=== PATIENT | female | born 1985 | race Two or more races ===

== ENCOUNTER 2025-01-28 15:56 | Inpatient (IN) | payer OTHER ==
[~2025-01-28] VITALS: Ht 160 cm; Wt 80.0 kg
--- NOTE | 2025-01-28 17:21 | ED.PDOC ---
History of Present Illness HPI Comments 39F presents to the ER w/ no prior MHx associated to the c/c of ABD pain. Pt reports on having sharp RLQ pain which radiates diffusely on the ABD and to the back which it starting yesterday. Pt notes on having pain during urination. Denies chills, fever, N/V/D, SOB, CP. Denies any other associated symptom's, modifiers, or recent injuries or sick contact at this time. Chief Complaint: Abdominal Pain Time Seen by MD: 17:20 Reviewed Notes: Nurses Notes, Medications, Allergies Allergies: Coded Allergies: NO KNOWN ALLERGIES (Unverified , 01/28/25) Information Source: Patient Mode of Arrival: Wheelchair Severity: Moderate Timing: Hours Duration: Since onset, Hours Prehospital treatment: None Past Medical History PAST MEDICAL HISTORY: Denies Surgical History: Denies all surgeries DIRECTOR OF OPERATIONS HOME HEALTH History: No Pertinent DIRECTOR OF OPERATIONS HOME HEALTH History Family History Family History: Reviewed,noncontributory to illness, Unknown Social History Smoker: Non-Smoker Alcohol: Occasionally Drugs: Denies Drug Use Lives In: Home Constitutional: denies: chills, diaphoresis, fatigue, fever, malaise, sweats, weakness, others EENTM: denies: blurred vision, double vision, ear bleeding, ear discharge, ear drainage, ear pain, ear ringing, eye pain, eye redness, hearing loss, mouth pain, mouth swelling, nasal discharge, nose bleeding, nose congestion, nose pain, photophobia, tearing, throat pain, throat swelling, voice changes, others Respiratory: denies: cough, hemoptysis, orthopnea, SOB at rest, shortness of breath, SOB with excertion, stridor, wheezing, others Cardiovascular: denies: chest pain, dizzy spells, diaphoresis, Dyspnea on exertion, edema, irregular heart beat, left arm pain, lightheadedness, palpitations, PND, syncope, others Gastrointestinal: reports: abdominal pain; denies: abdomen distended, blood s treaked bowels, constipated, diarrhea, dysphagia, difficulty swallowing, hematemesis, melena, nausea, poor appetite, poor fluid intake, rectal bleeding, rectal pain, vomiting, others Genitourinary: reports: others (pain during urination); denies: abnormal vagina bleeding, burning, dyspareunia, dysuria, flank pain, frequency, hematuria, inc ontinence, pain, , vagina discharge, urgency Neurological: denies: dizziness, fainting, headache, left sided numbness, left sided weakness, numbness, paresthesia, pre-existing deficit, right sided numbness, right sided weakness, seizure, speech problems, tingling, tremors, weakness, others Musculoskeletal: reports: back pain; denies: gout, joint pain, joint swelling, muscle pain, muscle stiffness, neck pain, others Integumetry: denies: bruises, change in color, change in hair/nails, dryness, laceration, lesions, lumps, rash, wounds, others Allergic/Immunocompromised: denies: Difficulty Healing, Frequent Infections, Hives, Itching, others Hematologic/Lymphatic: denies: anemia, blood clots, easy bleeding, easy bruising, swollen glands, others Endocrine: denies: excessive hunger, excessive sweating, excessive thirst, excessive urination, flushing, intolerance to cold, intolerance to heat, unexplained weight gain, unexplained weight loss, others Psychiatric: denies: anxiety, bipolar disorder, depression, hopeless, panic disorder, schizophrenia, sleepless, suicidal, others All Other Systems: Reviewed and Negative Physical Exam General Appearance: Moderate Distress HEENT: Normal ENT Inspection, Pharynx Normal, TMs Normal Neck: Full Range of Motion, Non-Tender, Normal, Normal Inspection Respiratory: Chest Non-Tender, Lungs Clear, No Accessory Muscle Use, No Respiratory Distress, Normal Breath Sounds Cardiovascular: No Edema, No JVD, No Murmur, No Gallop, Normal Peripheral Pulses, Regular Rate/Rhythm Breast Exam: Deferred Gastrointestinal: Diffuse, No Organomegaly, No Pulsatile Mass, Normal Bowel Sounds, Soft, Tenderness Genitalia: Deferred Pelvic: Deferred Rectal: Deferred Extremities: No calf tenderness, Normal capillary refill, No pedal edema Musculoskeletal : Apperance: Normal Neurologic: Alert, assessment technician II-XII nml as Tested, No Motor Deficits, Normal Affect, Normal Mood, No Sensory Deficits Cerebellar Function: Normal Reflexes: Normal Skin: Dry, Normal Color, Warm Lymphatic: No Adenopathy Was a procedure done? Was a procedure done?: No Differential Dx Considerations may include: Cholecystitis, cholelithiasis, appendicitis, generalized weakness, gastritis X-Ray, Labs, Meds, VS Vital Signs Date Time Temp Pulse Resp B/P (MAP) Pulse Ox O2 Delivery O2 Flow Rate FiO2 01/28/25 15:58 98.0 90 18 139/85 95 98.0 Lab Test 01/28/25 18:15 Range/Units White Blood Count 16.3 H 4.4-10.8 10^3/uL Red Blood Count 4.14 4.0-5.20 10^6/uL Hemoglobin 12.9 12.2-16.2 g/dL Hematocrit 38.3 36.0-46.0 % Mean Corpuscular Volume 92.5 80.0-100.0 fL Mean Corpuscular Hemoglobin 31.3 28.0-32.0 pg Mean Corpuscular Hemoglobin Concent 33.8 32.0-36.0 g/dL Red Cell Distribution Width 13.3 11.8-14.3 % Platelet Count 212 140-450 10^3/uL Mean Platelet Volume 8.2 6.9-10.8 fL Neutrophils (%) (Auto) 93.6 H 37.0-80.0 % Lymphocytes (%) (Auto) 2.9 L 10.0-50.0 % Monocytes (%) (Auto) 2.3 0.0-12.0 % Eosinophils (%) (Auto) 0.1 0.0-7.0 % Basophils (%) (Auto) 1.1 0.0-2.0 % Neutrophils # (Auto) 15.3 H 1.6-8.6 10 ^3/uL Lymphocytes # (Auto) 0.5 0.4-5.4 10 ^3/uL Monocytes # (Auto) 0.4 0-1.3 10 ^3/uL Eosinophils # (Auto) 0 0-0.8 10 ^3/uL Basophils # (Auto) 0.2 0-0.2 10 ^3/uL Nucleated Red Blood Cells 0.0 % Sodium Level 134 L 136-145 mmol/L Potassium Level 3.6 3.5-5.1 mmol/L Chloride Level 102 98-107 mmol/L Carbon Dioxide Level 23 20-31 mmol/L Anion Gap 9 5-15 Blood Urea Nitrogen 7 L 9-23 mg/dL Creatinine 0.84 0.550-1.02 mg/dL Glomerular Filtration Rate Calc 91 >90 mL/min BUN/Creatinine Ratio 8.3 L 10.0-20.0 Serum Glucose 188 H 74-106 mg/dL Calcium Level 9.1 8.7-10.4 mg/dL Total Bilirubin 1.3 H 0.2-1.0 mg/dL Aspartate Amino Transferase (AST) 13 13-40 U/L Alanine Aminotransferase (ALT) 11 7-40 U/L Alkaline Phosphatase 77 46-116 U/L Total Protein 7.6 5.7-8.2 g/dL Albumin 4.4 3.2-4.8 g/dL Lipase 22 12-53 U/L CAT scan of the abdomen and pelvis shows: IMPRESSION: 1. Mild stool burden. No hydronephrosis or nephroureterolithiasis. 2. Indeterminate 3.5 cm areas soft tissue thickening along the left posterior lower hemithorax. Imaging finding may be seen in the setting of metastatic disease to the intercostal space. No adjacent aggressive osseous features. Consider dedicated CT of the chest with contrast. The patient's CBC shows an elevated white blood cell count of 16.3 The chemistry panel is also within normal limits except for a bilirubin of 1.3 The patient will be admitted at this time. The patient understands and agrees with the management. The urine test is pending The patient was given morphine and Zofran for the pain and nausea The patient is being given Protonix 40 mg IV push Images Reviewed?: Images reviewed and evaluated by me Time of 1ST Reevaluation: 17:50 Reevaluation 1ST: Unchanged Patient Education/Counseling: Diagnosis, Treatment, Prognosis Family Education/Counseling: No Family Present SEPSIS Sepsis Screen Date sepsis recognized/suspect: Jan 28, 2025 Time Sepsis recognized/suspect: 1600 Recent Procedure: No On Antibiotic Therapy: No Respiratory Rate >20: No Heart Rate >90: No Temp<36 C (96.8 F) or >38.3 C: No SBP <90 or MAP <65 mmHG: No New Acute Mental Status Change: No Is the patient on CPAP, BIPAP,: No Physician Orders Urinalysis (01/28/25 17:18) Ct Ab Pel Wo Con-No Oral Or Iv (01/28/25 17:18) Heplock Iv (01/28/25 17:18) Automotive Glass Installer (01/28/25 17:18) Blood Pressure (01/28/25 17:18) Pulse Oximetry (01/28/25 17:18) Vital Signs Date Time Temp Pulse Resp B/P (MAP) Pulse Ox O2 Delivery O2 Flow Rate FiO2 01/28/25 15:58 98.0 90 18 139/85 95 98.0 Laboratory Tests Test 01/28/25 18:15 White Blood Count 16.3 10^3/uL (4.4-10.8) H Departure 1 Departure Time of Disposition: 20:37 Impression: Primary Impression: Intractable abdominal pain Disposition: ADMITTED INPATIENT Admit to: Med Surg Condition: Other Critical Care Note Critical Care Time?: No Stability Stability form required: Yes Unstable for transfer: ED Physician Assesment (Clinical assesment) Heart Score Heart Score: Heart Score Response (Comments) Value History N/A 0 EKG N/A 0 Age N/A 0 Risk Factors N/A 0 Troponin N/A 0 Total 0 I personally scribed for DENTON JIMENEZ MD ([email or web address]) on 01/28/25 at 17:21. Electronically submitted by Nain Zabala ([email or web address]). DENTON JIMENEZ MD Jan 28, 2025 17:21
[2025-01-28 18:37] LABS: Hematocrit 38.3 % (36.0-46.0); Hemoglobin 12.9 g/dL (12.2-16.2); Mean Corpuscular Hemoglobin 31.3 pg (28.0-32.0); Mean Corpuscular Volume 92.5 fL (80.0-100.0); Nucleated Red Blood Cells % 0.0 %
[2025-01-28 18:49] LABS: Alanine Aminotransferase 11 U/L (7-40); Albumin 4.4 g/dL (3.2-4.8); Alkaline Phosphatase 77 U/L (46-116); Anion Gap 9 (5-15); BUN/Creatinine Ratio 8.3 (10.0-20.0); Calcium 9.1 mg/dL (8.7-10.4); Carbon Dioxide 23 mmol/L (20-31); Chloride 102 mmol/L (98-107); Lipase 22 U/L (12-53); Potassium 3.6 mmol/L (3.5-5.1); Total Protein 7.6 g/dL (5.7-8.2)
[2025-01-28 18:50] LABS: Bilirubin, Total 1.3 mg/dL (0.2-1.0); Blood Urea Nitrogen 7 mg/dL (9-23); Glucose 188 mg/dL (74-106); Sodium 134 mmol/L (136-145)
--- NOTE | 2025-01-28 18:51 | DVH ---
EXAM: CT CT AB PEL WO CON-NO ORAL OR IV INDICATION: pain TECHNIQUE: Volumetric multidetector CT images of the abdomen and pelvis were obtained without contras t. All CT scans at this facility use dose modulation, iterative reconstruction, and/or weight based d osing when appropriate to reduce radiation dose to as low as reasonably achievable. COMPARISON: None FINDINGS: [LOWER CHEST]: Indeterminate 3.5 cm areas soft tissue thickening along the left posterior lower hemit horax. [LIVER]: Normal hepatic size without suspicious focal lesion. [GALLBLADDER AND BILIARY TREE]: No cholelithiasis. [SPLEEN]: Unremarkable. [PANCREAS]: Unremarkable. [ADRENAL GLANDS]: Unremarkable [KIDNEYS]: No hydronephrosis. No nephroureterolithiasis. [BLADDER]: Unremarkable for the degree distention. [REPRODUCTIVE ORGANS]: Unremarkable. [BOWEL/MESENTERY]: Stomach is normal. Mild stool burden. Normal appendix. [ASCITES]: Absent [LYMPHADENOPATHY]: No pathologically enlarged lymph nodes by CT size criteria [VASCULATURE]: No aneurysmal dilatation. [ABDOMINAL WALL]: Unremarkable. [MUSCULOSKELETAL]: No acute fracture or aggressive focal osseous lesion. IMPRESSION: 1. Mild stool burden. No hydronephrosis or nephroureterolithiasis. 2. Indeterminate 3.5 cm areas soft tissue thickening along the left posterior lower hemithorax. Imagi ng finding may be seen in the setting of metastatic disease to the intercostal space. No adjacent ag gressive osseous features. Consider dedicated CT of the chest with contrast.
[2025-01-29] VITALS (7 sets, daily range): BP systolic 110–117; BP diastolic 65–78; PULSE 70–92; RESP 16–18; TEMP 97.8–98.1; O2SAT 91–99
[2025-01-29] MEDS: ONDANSETRON HCL 4 MG/2 ML VIAL IV ONE ×2 (03:40→03:41)
[2025-01-29] MEDS: MORPHINE SULFATE 4 MG/ML SYR/VIAL IV ONE (03:40)
[2025-01-29] MEDS: SODIUM CHLORIDE 0.9% 500 ML IVB ONE (03:41)
[2025-01-29] MEDS: HYDROmorphone HCL 2 MG/ML VL/or syr IV ONE (03:42)
[2025-01-29] MEDS ORDERED: HYDROcodone-ACET 5/325MG TAB PO PRN (04:00)
[2025-01-29] MEDS ORDERED: DOCUSATE SOD 100 MG CAP PO PRN (04:00)
[2025-01-29] MEDS ORDERED: ONDANSETRON HCL 4 MG/2 ML VIAL IV PRN (04:00)
[2025-01-29] MEDS ORDERED: ACETAMINOPHEN 325 MG TAB PO PRN (04:00)
[2025-01-29] MEDS ORDERED: VANCOMYCIN PER PHARMACY 0 MG IV SCH ×2 (04:45→08:45)
[2025-01-29 04:50] LABS: Urine Protein, UAD Negative (Negative)
[2025-01-29 04:50] LABS: Hematocrit 35.5 % (36.0-46.0); Hemoglobin 12.1 g/dL (12.2-16.2); Mean Corpuscular Hemoglobin 31.4 pg (28.0-32.0); Mean Corpuscular Volume 92.1 fL (80.0-100.0); Nucleated Red Blood Cells % 0.0 %
[2025-01-29 04:59] LABS: Alanine Aminotransferase 10 U/L (7-40); Albumin 4.1 g/dL (3.2-4.8); Alkaline Phosphatase 72 U/L (46-116); Anion Gap 10 (5-15); BUN/Creatinine Ratio 8.5 (10.0-20.0); Bilirubin, Total 1.0 mg/dL (0.2-1.0); Calcium 8.7 mg/dL (8.7-10.4); Carbon Dioxide 24 mmol/L (20-31); Chloride 102 mmol/L (98-107); Total Protein 7.2 g/dL (5.7-8.2)
[2025-01-29 05:01] LABS: Blood Urea Nitrogen 6 mg/dL (9-23); Glucose 118 mg/dL (74-106); Potassium 3.4 mmol/L (3.5-5.1); Sodium 136 mmol/L (136-145)
[2025-01-29 05:05] LABS: INR 1.12 (0.9-1.15); Partial Thromboplastin Time 33.0 SEC (24.5-34.5); Prothrombin Time 11.7 sec (9.3-11.8)
[2025-01-29] MEDS ORDERED: LACTATED RINGER'S 1,000 ML IV SCH (07:15)
[2025-01-29] MEDS ORDERED: LACTATED RINGER'S 1,550 ML IV ONE (07:15)
[2025-01-29] MEDS: CLINDAMYCIN 600MG IV 50 ML IV SCH ×2 (08:14→16:59)
[2025-01-29] MEDS: MORPHINE SULFATE INJ 2 MG/ml SYRG IV PRN (08:26)
--- NOTE | 2025-01-29 08:40 | DVHHPRES ---
History of Present Illness Resident Creating Document: KERLINE LEDESMA RESIDENT History of Present Illness History of Present Illness (HPI): Cherelle Rutledge is a 39-year-old female with no significant past medical or surgical history who presented to the ED with a one-day history of severe lower abdominal pain that began the night prior to admission. The pain was initially localized but progressed to involve the entire abdomen, described as sharp and stabbing with an intensity of 10/10, worsened by movement and breathing, and associated with bloating and difficulty walking. She also reported fever, chills, headache, and backache starting the previous night. She denied nausea, vomiting, or diarrhea. Her last menstrual period ended two days ago, and she typically uses tampons; she was concerned about a retained tampon which was never recovered. Past Medical History (PMH): Not significant Past Surgical History (PSH): Not significant OBGYN Hx in Females: Active menstruation 2 days ago. Patient reports monogamy. 3 Family history (FH): Noncontributory Social history (SH): Lives with the denies smoking, alcohol and other drug abuse Home Medications: None Allergies: Vancomycin PCP: Suggested to follow up with [facility] at discharge. Specialists: OBGYN, needs close follow up. Domestic Violence: Neg Review of Systems Review of Systems General: patient denies fever, fatigue, weakness, sweating, any recent changes in appetite and weight HEENT: headache Cardiovascular: Denies chest pain, palpitations, dyspnea on exertion, orthopnea, or claudication. Respiratory: No cough, and wheezing. Gastrointestinal: abdominal pain Genitourinary: No dysuria, hematuria, discharge, frequency, urgency, nocturia, incontinence, and urinary retention. Endocrine: No heat or cold intolerance, polydipsia, polyuria, and polyphagia. Neurological: No dizziness, extremity weakness and numbness, tremors, gait disturbance, seizures, and memory impairment. Psychiatric: Denies depression, anxiety,or insomnia. Musculoskeletal: back pain Skin: No rashes, itching, skin lesion, changes in hair, nail, skin texture and breast. Hematologic/Lymphatic: Denies easy bruising, bleeding tendencies, or lymph node enlargement. Allergies: Coded Allergies: Vancomycin (Verified Allergy, Severe, 01/29/25) severe itching, redness on face and chest Medications Current Medications Medications Dose Ordered Sig/Neel Route Start Time Stop Time Status Last Admin Dose Admin Acetaminophen 325 mg Q4HP PRN PO 01/29/25 04:00 Acetaminophen/ Hydrocodone Bitart 1 tab Q4HP PRN PO 01/29/25 04:00 Ondansetron HCl 4 mg Q4HP PRN IV 01/29/25 04:00 Docusate Sodium 100 mg BIDPRN PRN PO 01/29/25 04:00 Morphine Sulfate 2 mg Q4HPRN PRN IV 01/29/25 04:00 01/29/25 08:26 2 MG Vancomycin HCl 0 ml @ 0 mls/hr UD IV 01/29/25 04:45 UNV Cefepime HCl 50 ml @ 12.5 mls/hr Q8HR IV 01/29/25 06:00 Clindamycin Phosphate 50 ml @ 50 mls/hr Q8HR IV 01/29/25 06:00 01/29/25 08:14 50 MLS/HR Lactated Ringer's 1,000 ml @ 100 mls/hr Q10H IV 01/29/25 07:15 Exam Vital Signs Vital Signs Date Time Temp Pulse Resp B/P (MAP) Pulse Ox O2 Delivery O2 Flow Rate FiO2 01/29/25 08:26 83 16 111/72 01/29/25 05:00 97.9 91 97.9 01/29/25 03:30 Room Air* 0 21 Exam General Appearance: Alert, Oriented X3, Cooperative, patient is in acute distress HEENT: Atraumatic, PERRLA, EOMI, Mucous membrane moist/pink Respiratory: Clear to auscultation, Normal air movement Cardiovascular: Regular rate, Normal S1, Normal S2, No murmurs, no chest wall tenderness Abdominal: Diffuse abdominal tenderness, bilateral flank tenderness Extremities: No clubbing, No cyanosis, No edema, Normal pulses, No tendern ess/swelling Skin: No rashes, No breakdown, No significant lesion Neuro: Normal gait, Normal speech, Strength at 5/5 X4 ext, Normal tone, Sensation intact, Cranial nerves 3-12 NL, Reflexes 2+ Psych/Mental Status: Mental status NL, Mood NL Labs/Xrays Labs Test 01/29/25 06:10 01/29/25 04:14 01/29/25 03:40 Range/Units White Blood Count 16.4 H 4.4-10.8 10^3/uL Red Blood Count 3.86 L 4.0-5.20 10^6/uL Hemoglobin 12.1 L 12.2-16.2 g/dL Hematocrit 35.5 L 36.0-46.0 % Mean Corpuscular Volume 92.1 80.0-100.0 fL Mean Corpuscular Hemoglobin 31.4 28.0-32.0 pg Mean Corpuscular Hemoglobin Concent 34.1 32.0-36.0 g/dL Red Cell Distribution Width 13.1 11.8-14.3 % Platelet Count 209 140-450 10^3/uL Mean Platelet Volume 8.6 6.9-10.8 fL Neutrophils (%) (Auto) 86.6 H 37.0-80.0 % Lymphocytes (%) (Auto) 8.3 L 10.0-50.0 % Monocytes (%) (Auto) 4.7 0.0-12.0 % Eosinophils (%) (Auto) 0.2 0.0-7.0 % Basophils (%) (Auto) 0.2 0.0-2.0 % Neutrophils # (Auto) 14.2 H 1.6-8.6 10 ^3/uL Lymphocytes # (Auto) 1.4 0.4-5.4 10 ^3/uL Monocytes # (Auto) 0.8 0-1.3 10 ^3/uL Eosinophils # (Auto) 0 0-0.8 10 ^3/uL Basophils # (Auto) 0 0-0.2 10 ^3/uL Nucleated Red Blood Cells 0.0 % Prothrombin Time 11.7 9.3-11.8 sec Prothrombin Time INR 1.12 0.9-1.15 Activated Partial Thromboplast Time 33.0 24.5-34.5 SEC Sodium Level 136 136-145 mmol/L Potassium Level 3.4 L 3.5-5.1 mmol/L Chloride Level 102 98-107 mmol/L Carbon Dioxide Level 24 20-31 mmol/L Anion Gap 10 5-15 Blood Urea Nitrogen 6 L 9-23 mg/dL Creatinine 0.71 0.550-1.02 mg/dL Glomerular Filtration Rate Calc 110 >90 mL/min BUN/Creatinine Ratio 8.5 L 10.0-20.0 Serum Glucose 118 H 74-106 mg/dL Calcium Level 8.7 8.7-10.4 mg/dL Total Bilirubin 1.0 0.2-1.0 mg/dL Aspartate Amino Transferase (AST) 10 L 13-40 U/L Alanine Aminotransferase (ALT) 10 7-40 U/L Alkaline Phosphatase 72 46-116 U/L Total Protein 7.2 5.7-8.2 g/dL Albumin 4.1 3.2-4.8 g/dL Lipase 22 12-53 U/L Urine Color Light-yellow Yellow Urine Clarity Clear Clear Urine pH 6.0 5.0-9.0 Urine Specific [place] 1.012 1.001-1.035 Urine Protein Negative Negative Urine Ketones Negative Negative Urine Blood Negative Negative /uL Urine Nitrite Negative Negative Urine Bilirubin Negative Negative Urine Urobilinogen 2 H Negative mg/dL Urine Leukocyte Esterase Negative Negative /uL Urine RBC None seen 0 - 4 /hpf Urine Microscopic WBC 1 0-5 /HPF Urine Squamous Epithelial Cells Few <5 /hpf Urine Bacteria Few H None Seen /hpf Urine Mucus Few None Seen Urine Glucose Normal Normal mg/dL SEPSIS Sepsis Screen Date sepsis recognized/suspect: Jan 28, 2025 Time Sepsis recognized/suspect: 1600 Recent Procedure: No On Antibiotic Therapy: No Respiratory Rate >20: No Heart Rate >90: Yes Temp<36 C (96.8 F) or >38.3 C: No SBP <90 or MAP <65 mmHG: No New Acute Mental Status Change: No Is the patient on CPAP, BIPAP,: No Physician Orders Admit (01/29/25 03:48) Allergies (01/29/25 03:48) Code Status (01/29/25 03:48) Acetaminophen Tablet (Tylenol Tablet) (01/29/25 04:00) Hydrocodone-Acet 5/325mg Tab (Pearson 5/32 (01/29/25 04:00) Ondansetron Hcl (Zofran) (01/29/25 04:00) Docusate Sodium Capsule (Colace Capsule) (01/29/25 04:00) Npo (Nothing By Mouth) Diet (01/29/25 Breakfast) Condition: Serious (01/29/25 03:48) Morphine Sulfate Injection (01/29/25 04:00) Blood Culture (01/29/25 04:21) Vancomycin Per Pharmacy (01/29/25 04:45) Cefepime 1gm/ 50ml (Maxipime 1gm/50ml) (01/29/25 06:00) Clindamycin 600mg Iv (Cleocin Iv) (01/29/25 06:00) Lactic Acid W/ Reflex Order (01/29/25 05:51) Transvaginal Us Non Ob (01/29/25 05:51) Wet Mount (01/29/25 05:51) Vancomycin Per Pharmacy Protoc (01/29/25 07:00) Beta Hcg, Quantitative (01/29/25 06:51) Chlamydia/Gc Amplification (01/29/25 06:51) * Food Cashier Consultation (01/29/25 06:51) Bacterial Culture Vaginal (01/29/25 06:51) Lactated Ringer's (01/29/25 07:15) Vital Signs Date Time Temp Pulse Resp B/P (MAP) Pulse Ox O2 Delivery O2 Flow Rate FiO2 01/29/25 08:26 83 16 111/72 01/29/25 05:00 97.9 85 18 116/78 (91) 91 97.9 01/29/25 03:42 92 18 131/86 01/29/25 03:30 98.1 92 18 131/86 (101) 99 98.1 01/29/25 03:30 92 18 99 Room Air* 0 21 01/29/25 01:16 99.1 99 16 136/91 (106) 96 99.1 Laboratory Tests Test 01/29/25 04:14 01/29/25 06:10 White Blood Count 16.4 10^3/uL (4.4-10.8) H Lactic Acid Level Pending Medications Medications Dose Ordered Sig/Neel Route Start Time Stop Time Status Last Admin Dose Admin Clindamycin Phosphate 50 ml @ 50 mls/hr Q8HR IV 01/29/25 06:00 01/29/25 08:14 50 MLS/HR Hydromorphone HCl 1 mg ONCE ONCE IV 01/29/25 03:30 01/29/25 03:31 DC 01/29/25 03:42 1 MG Morphine Sulfate 2 mg Q4HPRN PRN IV 01/29/25 04:00 01/29/25 08:26 2 MG Ondansetron HCl 4 mg ONCE ONCE IV 01/29/25 03:30 01/29/25 03:31 DC 01/29/25 03:41 4 MG Assessment/Plan Assessment/Plan # Likely, toxic shock syndrome due to retained tampon/lost tampon thread: Negative speculum examination, needs further input from obgyn, consulted Dr. Garsia, follow up recommendation. # Likely sexually transmitted disease, Noted vaginal discharge and swelling in sexually active female: wet mount microscopy, VDRL, chlamydia, gonorrhea follow up # Sepsis likely due to above: Sepsis bundle with IVF, monitor hemodynamics to keep MAP>65, follow up blood and local cultures, follow up labs, CT abdomen pelvis with contrast follow up. Continue IV clindamycin + cefepime + vancomycin # Acute abdominal pain in workup, ruled out Acute pancreatitis, Ectopic , Complicated UTI, and Surgical Abdomen with viscus rupture. 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 # Grade I obesity Diet: NPO PUD prophylaxis: not needed DVT prophylaxis: brisk movement. Barriers to discharge: Medical diagnosis and management in progress. Patient lives with family. Independent for ADL. PCP: Yet to establish, [place] clinic follow up. Specialist Relevant To Admission: OBGYN, Dr. Garsia. Case discussed with Dr. Stroud. Code Status: Full Code. Discussion needed total 39 minutes bedside. Plan discussed with: Patient, Spouse My Orders Orders - KERLINE LEDESMA RESIDENT Procedure Category Date Status Time Admit ADMIT 01/29/25 Transmitted 03:48 Allergies IMELDA 01/29/25 In Process 03:48 Code Status CODE 01/29/25 Transmitted 03:48 Acetaminophen Tablet PHA 01/29/25 In Process (Tylenol Tablet) 04:00 Hydrocodone-Acet PHA 01/29/25 In Process 5/325mg Tab (Pearson 04:00 Ondansetron Hcl PHA 01/29/25 In Process (Zofran) 04:00 Docusate Sodium PHA 01/29/25 In Process Capsule (Colace 04:00 Npo (Nothing By DIET 01/29/25 Transmitted Mouth) Diet Breakfast Condition: Serious IMELDA 01/29/25 In Process 03:48 Morphine Sulfate PHA 01/29/25 In Process Injection 04:00 Blood Culture NYDIA 01/29/25 In Process 04:21 Vancomycin Per PHA 01/29/25 Pending Pharmacy 04:45 Cefepime 1gm/ 50ml PHA 01/29/25 In Process (Maxipime 1gm/50ml) 06:00 Clindamycin 600mg Iv PHA 01/29/25 In Process (Cleocin Iv) 06:00 Lactic Acid W/ Reflex LAB 01/29/25 In Process Order 05:51 Transvaginal Us Non Ob US 01/29/25 Logged 05:51 Wet Mount LAB 01/29/25 Logged 05:51 Vancomycin Per IMELDA 01/29/25 In Process Pharmacy Protoc 07:00 Date of Service: Jan 29, 2025 Billing Provider: BRENDAN STROUD MD Common Visit Codes: [id number] INP/OBS CARE (HIGH) Secondary Visit Codes: [id number] CARE PLAN 30 MINUTES KERLINE LEDESMA RESIDENT Jan 29, 2025 08:40 ANTWAN AYOUB RESIDENT Feb 01, 2025 06:09
--- NOTE | 2025-01-29 08:47 | DVHINCON2 ---
Date of service: Jan 29, 2025 Referring Physician HOSPITALIST Reason for Consultation ABD PAIN,QUESTIONABLE LOST TAMPON History of Present Illness PT IS ADMITTED FOR INTRACTIBLE ABD PAIN AND NO VAG BLEEDING. PT STATES SHE HAD SEX 2 DAYS AGO ,SHE IS QUESTIONING LOST TAMPON SHE HAS SOME CONSTIPATION,PAIN WITH URINATION AND BACK PAIN.PELVIC US HAS BEEN ORDERED BUT NOT DONE YET. Past Medical History NONE Past Surgical History NONE Family History NA Social History 3 Allergies: Coded Allergies: NO KNOWN ALLERGIES (Unverified , 01/28/25) Current Medications Current Medications Medications (Trade) Dose Ordered Sig/Neel Route PRN Reason Start Time Stop Time Status Last Admin Acetaminophen (Tylenol Tablet) 325 mg Q4HP PRN PO MILD PAIN (1-3 PAIN SCALE) 01/29/25 04:00 Acetaminophen/ Hydrocodone Bitart ([place] 5/325MG Tab) 1 tab Q4HP PRN PO MODERATE PAIN (4-6 PAIN SCALE) 01/29/25 04:00 Ondansetron HCl (Zofran) 4 mg Q4HP PRN IV NAUSEA / VOMITING 01/29/25 04:00 Docusate Sodium (Colace Capsule) 100 mg BIDPRN PRN PO FOR CONSTIPATION 01/29/25 04:00 Morphine Sulfate 2 mg Q4HPRN PRN IV SEVERE PAIN (7-10 PAIN SCALE) 01/29/25 04:00 01/29/25 08:26 Vancomycin HCl 0 ml @ 0 mls/hr UD IV 01/29/25 04:45 UNV Cefepime HCl 50 ml @ 12.5 mls/hr Q8HR IV 01/29/25 06:00 Clindamycin Phosphate 50 ml @ 50 mls/hr Q8HR IV 01/29/25 06:00 01/29/25 08:14 Lactated Ringer's 1,000 ml @ 100 mls/hr Q10H IV 01/29/25 07:15 Review of Systems Constitutional: no fever, chill, weight loss HEENT: no eye pain, no hearing loss, no oral lesion, no scleral icterus Heart: no chest pain, no chest pressure Lung: no cough, no dyspnea with exertion Abdomen: see HPI : POSITIVE pain with urination Musculoskeletal: no joint pain, no muscle pain Neurological: no seizure, no loss of sensation, no weakness in extremities Pysch: no depression, no anxiety Derm: no rash, no jaundice Vital Signs Vital Signs Date Time Temp Pulse Resp B/P (MAP) Pulse Ox O2 Delivery O2 Flow Rate FiO2 01/29/25 08:26 83 16 111/72 01/29/25 05:00 97.9 91 97.9 01/29/25 03:30 Room Air* 0 21 Physical Exam ALERT AND AWAKE IN NAD HEENT: NL NECK: NL CARDIAC: RRR PULMONARY: CTA ABDOMEN: SOFT,NO RIGIDITY,NO REBOUND PELVIC- VAG NL,NO TAMPON OR ANY OTHER OBJECT PALPATED,VAG NOT WARM TO TOUCH NO CMT ,UTERUS NT EXT-NO CCE Labs/Diagnostic Data Labs Test 01/29/25 06:10 01/29/25 04:14 01/29/25 03:40 Range/Units White Blood Count 16.4 H 4.4-10.8 10^3/uL Red Blood Count 3.86 L 4.0-5.20 10^6/uL Hemoglobin 12.1 L 12.2-16.2 g/dL Hematocrit 35.5 L 36.0-46.0 % Mean Corpuscular Volume 92.1 80.0-100.0 fL Mean Corpuscular Hemoglobin 31.4 28.0-32.0 pg Mean Corpuscular Hemoglobin Concent 34.1 32.0-36.0 g/dL Red Cell Distribution Width 13.1 11.8-14.3 % Platelet Count 209 140-450 10^3/uL Mean Platelet Volume 8.6 6.9-10.8 fL Neutrophils (%) (Auto) 86.6 H 37.0-80.0 % Lymphocytes (%) (Auto) 8.3 L 10.0-50.0 % Monocytes (%) (Auto) 4.7 0.0-12.0 % Eosinophils (%) (Auto) 0.2 0.0-7.0 % Basophils (%) (Auto) 0.2 0.0-2.0 % Neutrophils # (Auto) 14.2 H 1.6-8.6 10 ^3/uL Lymphocytes # (Auto) 1.4 0.4-5.4 10 ^3/uL Monocytes # (Auto) 0.8 0-1.3 10 ^3/uL Eosinophils # (Auto) 0 0-0.8 10 ^3/uL Basophils # (Auto) 0 0-0.2 10 ^3/uL Nucleated Red Blood Cells 0.0 % Prothrombin Time 11.7 9.3-11.8 sec Prothrombin Time INR 1.12 0.9-1.15 Activated Partial Thromboplast Time 33.0 24.5-34.5 SEC Sodium Level 136 136-145 mmol/L Potassium Level 3.4 L 3.5-5.1 mmol/L Chloride Level 102 98-107 mmol/L Carbon Dioxide Level 24 20-31 mmol/L Anion Gap 10 5-15 Blood Urea Nitrogen 6 L 9-23 mg/dL Creatinine 0.71 0.550-1.02 mg/dL Glomerular Filtration Rate Calc 110 >90 mL/min BUN/Creatinine Ratio 8.5 L 10.0-20.0 Serum Glucose 118 H 74-106 mg/dL Calcium Level 8.7 8.7-10.4 mg/dL Total Bilirubin 1.0 0.2-1.0 mg/dL Aspartate Amino Transferase (AST) 10 L 13-40 U/L Alanine Aminotransferase (ALT) 10 7-40 U/L Alkaline Phosphatase 72 46-116 U/L Total Protein 7.2 5.7-8.2 g/dL Albumin 4.1 3.2-4.8 g/dL Lipase 22 12-53 U/L Urine Color Light-yellow Yellow Urine Clarity Clear Clear Urine pH 6.0 5.0-9.0 Urine Specific [place] 1.012 1.001-1.035 Urine Protein Negative Negative Urine Ketones Negative Negative Urine Blood Negative Negative /uL Urine Nitrite Negative Negative Urine Bilirubin Negative Negative Urine Urobilinogen 2 H Negative mg/dL Urine Leukocyte Esterase Negative Negative /uL Urine RBC None seen 0 - 4 /hpf Urine Microscopic WBC 1 0-5 /HPF Urine Squamous Epithelial Cells Few <5 /hpf Urine Bacteria Few H None Seen /hpf Urine Mucus Few None Seen Urine Glucose Normal Normal mg/dL Primary Diagnosis ABD PAIN NO EVIDENCE OF LOST TAMPON Plan PT IS ON ANTIBIOTICS ,CONTINUE WITH ABX PELVIC SONO PENDING WILL FOLLOW Plan discussed with: Patient Visit Coding OBGYN Date of Service: Jan 29, 2025 Billing Provider: IRMA BOURGEOIS DO DECISION UNIT RN Common Visit Codes: 55531-PERAQKZ INP/OBS CARE (HIGH) DECISION UNIT RN Consultation Codes: [id number] CONSULT <80MIN IRMA BOURGEOIS DO Jan 29, 2025 08:47
--- NOTE | 2025-01-29 09:49 | DVH ---
CLINICAL HISTORY: Possible tampon TECHNIQUE: Ultrasound examination of the female pelvis was performed transabdominal. Transvaginal ult rasound was performed to more optimally assess the endometrial cavity. COMPARISON: None FINDINGS: TRANSABDOMINAL IMAGING: The bladder is grossly unremarkable. Endovaginal imaging was thereafter performed for better depictio n of the anatomy. ENDOVAGINAL IMAGING: The uterus measures 8.5 X 4.8 X 5.5 CM. The myometrial echotexture is homogenous. No focal myometria l abnormality is seen. The endometrial lining is normal in thickness, measuring 6 mm. The right ovary measures 3.4 X 4.7 X 2.0 cm. The left ovary measures 4.2 X 4.5 X 3.3 cm. Normal color doppler flow and vascular waveforms. There is no free fluid. No foreign body is evident. IMPRESSION: NO SIGNIFICANT SONOGRAPHIC ABNORMALITY OF THE PELVIS.
[2025-01-29] MEDS: VANCOMYCIN 1.25GM/250ML 250 ML IV ONE (10:13)
[2025-01-29] MEDS: POTASSIUM EFFERVESENT TAB 25 MEQ PO ONE (10:25)
[2025-01-29] MEDS: CEFEPIME 1GM/50ML 50 ML IV SCH (11:36)
[2025-01-29] MEDS: SODIUM CHLORIDE 0.9% 1,000 ML IV ONE (12:32)
[2025-01-29] MEDS: diphenhdrAMINE HCL 50 MG/1 ML VL IV ONE (12:39)
[2025-01-29] MEDS: methylPREDNISolone SOD SUCC 40 MG/ML VL IV ONE (12:39)
[2025-01-29] MEDS: SODIUM CHLORIDE 0.9% 1,000 ML IV SCH (13:36)
--- NOTE | 2025-01-29 13:47 | DVHPNRES ---
Progress Note Date Seen: Jan 29, 2025 Resident Creating Document: ZULEMA PUENTE RESIDENT Medical Necessity Reason Pt with a Central, PICC or Fol: No Subjective Review of Systems MG SEAY is a 39 years old female with a no significant PMH presented to the ED with the chief complaints of severe lower abdominal pain that started night on the day of admission. Patient reported she developed severe lower abdominal pain, 10/10 intensity, described as sharp and stabbing and then affecting entire abdomen. Pain has been exacerbated by breathing and movements, making it difficult for her to walk also reported feeling bloated. Patient also reported she has been experiencing feverish, chills last night associated with a headache and backache. She denies nausea, vomiting, diarrhea. Patient reported her LMP ended 2 days ago, typically uses tampons and was concerned about possible early living 1 in but check revealed no retained tampon, patient denies any unusual vaginal discharge or odor. PMH: Not significant PSH: Not significant Family history: Noncontributory Social history: Lives with the denies smoking, alcohol and other drug abuse Home medications: None Allergies: None Patient seen and examined at the bedside. Overnight events reviewed, no new complaints reported except pain in the anatomic. CT abdominal pelvis showed no acute changes, pelvic ultrasound does show showed no retained foreign body. Patient was initially started on cefepime, vancomycin and clindamycin but due to vancomycin allergy we discontinued eventually. Ordered cultures. Patient still has ongoing pain, ordered CT abdominal pelvis with IV and oral contrast. Patient reports: No new complaints Objective vital signs Vital Sign Date Time Temp Pulse Resp B/P (MAP) Pulse Ox O2 Delivery O2 Flow Rate FiO2 01/29/25 13:00 98.1 90 16 110/65 (80) 95 98.1 01/29/25 08:30 Room Air* 0 21 medications Current Medications Medications Dose Ordered Sig/Neel Route Start Time Stop Time Status Last Admin Dose Admin Acetaminophen 325 mg Q4HP PRN PO 01/29/25 04:00 Acetaminophen/ Hydrocodone Bitart 1 tab Q4HP PRN PO 01/29/25 04:00 Ondansetron HCl 4 mg Q4HP PRN IV 01/29/25 04:00 Docusate Sodium 100 mg BIDPRN PRN PO 01/29/25 04:00 Morphine Sulfate 2 mg Q4HPRN PRN IV 01/29/25 04:00 01/29/25 12:39 2 MG Cefepime HCl 50 ml @ 12.5 mls/hr Q8HR IV 01/29/25 06:00 01/29/25 11:36 12.5 MLS/HR Clindamycin Phosphate 50 ml @ 50 mls/hr Q8HR IV 01/29/25 06:00 01/29/25 08:14 50 MLS/HR Sodium Chloride 1,000 ml @ 100 mls/hr Q10H IV 01/29/25 12:15 01/29/25 13:36 100 MLS/HR Examination Pt is lying on bed General Appearance: Alert, Oriented X3, Cooperative, Not in acute distress HEENT: Atraumatic, Mucous membranes moist/pink Respiratory: Clear to auscultation, Normal air movement, No added sounds Cardiovascular: Regular rate, Normal S1, Normal S2, No murmurs Abdominal: Active bowel sounds, Soft, no distention, no tenderness Extremities: No edema, Normal pulses, No tenderness/swelling Skin: No Significant rash, except past surgical scars Neuro: Normal speech, sensorimotor deficits none Psych/Mental Status: Mental status NL, Mood NL 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 during examination laboratory and microbiology Laboratory Tests 01/29/25 04:14 Test 01/29/25 04:14 Range/Units Serum Glucose 118 H 74-106 mg/dL Labs and/or images reviewed: Labs reviewed by me, Image(s) reviewed by me Problem List/Assessment/Plan Problem List/Assessment/Plan # Sepsis unspecified for now possibly toxic shock syndrome # rule out toxic shock syndrome - continuously monitor lab - IVF - monitor hemodynamics - ordered blood and vaginal cultures - currently on clindamycin and cefepime - pelvic ultrasound showed no retained foreign body - CT abdomen pelvis without contrast showed no acute changes so ordered 1 with contrast - Negative speculum examination # R/o pyelonephritis # Hypokalemia-potassium supplemented # To rule out vaginal infections and STD -with mount microscopy, VDRL, chlamydia, gonorrhea GI PPX: not indicated VTE ppx: not indicated Diet: clear liquids Goals of care addressed with the patient for more than 27 minutes: Full code status Case discussed with Dr. Christianson ,patient and nurse Plan discussed with: Patient, Other (rn) My Orders My Orders Orders - ZULEMA PUENTE RESIDENT Procedure Category Date Status Time Ct Abd Pelvis W CT 01/29/25 Logged Con-Oral & Iv 13:38 Complete Blood Count LAB 01/30/25 Verified 04:00 Comprehensive LAB 01/30/25 Verified Metabolic Panel 04:00 Magnesium LAB 01/30/25 Verified 04:00 ZULEMA PUENTE RESIDENT Jan 29, 2025 13:47
[2025-01-29] MEDS ORDERED: OMNIPAQUE 12mg/ml 500ml ORAL SOLUTION PO ONE (13:49)
[2025-01-29] MEDS ORDERED: IOHEXOL 300 MG/ML 100ML BOTTLE IJ ONE (16:02)
--- NOTE | 2025-01-29 17:26 | DVH ---
Exam: CT CT ABD PELVIS W CON-ORAL IV History: Severe abdominal tenderness, flank tenderness and sepsis Comparison Study: US PELVIC on DOS: 01/29/25, CT CT AB PEL WO CON-NO ORAL OR IV on DOS: 01/28/25 TECHNIQUE: Multidetector CT of the abdomen was performed from lung bases to pubic symphysis. Imaging was performed without IV contrast. Axial, coronal and sagittal multiplanar reformats were obtained fr om the axial data set by the technologist. Radiation Dose Information: CT Dose: CTDI volume is 10.12 mGy. Dose-length product is 586.45 mGy*cm FINDINGS: Evaluation of solid organs is limited due to lack of intravenous contrast use. Findings: Lung Bases: Worsening of the airspace disease posterior costophrenic angles bilaterally when compared to 01/28/2025. Normal heart size. No pleural or pericardial effusion. Liver: The liver is normal in size. No focal lesions. Gallbladder and Biliary Tree: Unremarkable Spleen: Unremarkable Pancreas: The pancreas is grossly normal in appearance. Adrenal Glands: Unremarkable Kidneys: Kidneys are grossly normal without calculi or hydronephrosis. Bladder: Grossly unremarkable for degree of distention. Bowel: The stomach is grossly normal in appearance. Small bowel and colon are normal in caliber and d istribution. The appendix is not visualized; however, no secondary findings of acute appendicitis id entified. Ascites: Absent Lymphadenopathy: No mesenteric, retroperitoneal or periportal lymphadenopathy. Abdominal Wall and Mesentery: Unremarkable. Vasculature: The visualized abdominal aorta is normal in size and caliber. Evaluation of abdominal a nd pelvic vessels is limited due to lack of intravenous contrast. Pelvic Organs: Unremarkable Musculoskeletal: No aggressive focal bony lesions, acute fractures or dislocation. Soft tissues: Unremarkable IMPRESSION: 1. No acute abdominal or pelvic finding. 2. No nephrolithiasis or hydronephrosis. 3. No free air or free fluid in the abdomen or pelvis. Radiation optimization: All CT scans at this facility use at least one of these dose optimization fabrice hniques: automated exposure control mA and/or kV adjustment per patient size (includes targeted exam s where dose is matched to clinical indication) or iterative reconstruction.
[2025-01-29] MEDS ORDERED: CEFEPIME 1GM/50ML 50 ML IV SCH (20:00)
[2025-02-01 05:08] LABS: Chlamydia Trachomatis, NAA Positive (Negative); Neisseria gonorrhoeae, NAA Positive (Negative)
--- NOTE | 2025-02-01 06:15 | DVHDSRES ---
Discharge Summary Date of Admission Resident Creating Document: ANTWAN AYOUB RESIDENT Jan 29, 2025 at 03:48 Date of Discharge: Jan 29, 2025 Admitting Diagnosis Acute abdominal pain Labs/Diagnostic Data: Laboratory Results Test 01/29/25 21:01 01/29/25 13:30 01/29/25 04:14 01/29/25 03:40 Chlamydia trachomatis ([facility]) Positive (Negative) Neisseria gonorrhoeae ([facility]) Positive (Negative) Lactic Acid Level 0.7 mmol/L (0.4-2.0) White Blood Count 16.4 10^3/uL (4.4-10.8) Red Blood Count 3.86 10^6/uL (4.0-5.20) Hemoglobin 12.1 g/dL (12.2-16.2) Hematocrit 35.5 % (36.0-46.0) Mean Corpuscular Volume 92.1 fL (80.0-100.0) Mean Corpuscular Hemoglobin 31.4 pg (28.0-32.0) Mean Corpuscular Hemoglobin Concent 34.1 g/dL (32.0-36.0) Red Cell Distribution Width 13.1 % (11.8-14.3) Platelet Count 209 10^3/uL (140-450) Mean Platelet Volume 8.6 fL (6.9-10.8) Neutrophils (%) (Auto) 86.6 % (37.0-80.0) Lymphocytes (%) (Auto) 8.3 % (10.0-50.0) Monocytes (%) (Auto) 4.7 % (0.0-12.0) Eosinophils (%) (Auto) 0.2 % (0.0-7.0) Basophils (%) (Auto) 0.2 % (0.0-2.0) Neutrophils # (Auto) 14.2 10 ^3/uL (1.6-8.6) Lymphocytes # (Auto) 1.4 10 ^3/uL (0.4-5.4) Monocytes # (Auto) 0.8 10 ^3/uL (0-1.3) Eosinophils # (Auto) 0 10 ^3/uL (0-0.8) Basophils # (Auto) 0 10 ^3/uL (0-0.2) Nucleated Red Blood Cells 0.0 % Prothrombin Time 11.7 sec (9.3-11.8) Prothrombin Time INR 1.12 (0.9-1.15) Activated Partial Thromboplast Time 33.0 SEC (24.5-34.5) Sodium Level 136 mmol/L (136-145) Potassium Level 3.4 mmol/L (3.5-5.1) Chloride Level 102 mmol/L (98-107) Carbon Dioxide Level 24 mmol/L (20-31) Anion Gap 10 (5-15) Blood Urea Nitrogen 6 mg/dL (9-23) Creatinine 0.71 mg/dL (0.550-1.02) Glomerular Filtration Rate Calc 110 mL/min (>90) BUN/Creatinine Ratio 8.5 (10.0-20.0) Serum Glucose 118 mg/dL (74-106) Calcium Level 8.7 mg/dL (8.7-10.4) Total Bilirubin 1.0 mg/dL (0.2-1.0) Aspartate Amino Transferase (AST) 10 U/L (13-40) Alanine Aminotransferase (ALT) 10 U/L (7-40) Alkaline Phosphatase 72 U/L (46-116) Total Protein 7.2 g/dL (5.7-8.2) Albumin 4.1 g/dL (3.2-4.8) Lipase 22 U/L (12-53) Beta HCG, Quantitative 0.1 mIU/mL (1.5-4.2) Urine Color Light-yellow (Yellow) Urine Clarity Clear (Clear) Urine pH 6.0 (5.0-9.0) Urine Specific Model 1.012 (1.001-1.035) Urine Protein Negative (Negative) Urine Ketones Negative (Negative) Urine Blood Negative /uL (Negative) Urine Nitrite Negative (Negative) Urine Bilirubin Negative (Negative) Urine Urobilinogen 2 mg/dL (Negative) Urine Leukocyte Esterase Negative /uL (Negative) Urine RBC None seen /hpf (0 - 4) Urine Microscopic WBC 1 /HPF (0-5) Urine Squamous Epithelial Cells Few /hpf (<5) Urine Bacteria Few /hpf (None Seen) Urine Mucus Few (None Seen) Urine Glucose Normal mg/dL (Normal) Other Laboratory Tests 01/29/25 04:14 Brief Hx & Hospital Course: Hospitalization Summary: Cherelle Rutledge is a 39-year-old female with no significant past medical or surgical history who presented to the ED with a one- day history of severe lower abdominal pain that began the night prior to admission. The pain was initially localized but progressed to involve the entire abdomen, described as sharp and stabbing with an intensity of 10/10, worsened by movement and breathing, and associated with bloating and difficulty walking. She also reported fever, chills, headache, and backache starting the previous night. She denied nausea, vomiting, or diarrhea. Her last menstrual period ended two days ago, and she typically uses tampons; she was concerned about a retained tampon which was never recovered. Workup and management in progress, pbx wire chief on board, despite optimal trying tampon thread was not been able to recover. Unfortunately patient has left AMA signing the document, refer to the document in file. Past Medical History (PMH): Not significant Past Surgical History (PSH): Not significant OBGYN Hx in Females: Active menstruation 2 days ago. Patient reports monogamy. 3 Family history (FH): Noncontributory Social history (SH): Lives with the denies smoking, alcohol and other drug abuse Home Medications: None Allergies: Vancomycin PCP: Suggested to follow up with [facility] at discharge. Specialists: OBGYN, needs close follow up. Domestic Violence: Neg Medical conditions treated in hospital/ Final Diagnosis: # Likely, toxic shock syndrome due to retained tampon/lost tampon thread # Likely sexually transmitted disease, Noted vaginal discharge and swelling in sexually active female # Sepsis likely due to above # Acute abdominal pain in workup, ruled out Acute pancreatitis, Ectopic , Complicated UTI, and Surgical Abdomen with viscus rupture. Simple and/or complicated UTI: Ruled out clinically # Acute Hypokalemia, Mild # Likely left thoracic lipoma, noted Indeterminate 3.5 cm areas soft tissue thickening along the left posterior lower hemithorax on CT # MRSA nares screen +ve # Yet to Rule out and retrained product of conception # Grade I obesity Physical Examination (PE) on the day of discharge: Left AMA Post Hospital Discharge Follow up: Patient is agreed to follow PCP in 1-2 weeks of discharge and specialists as needed. Discharge clinic follow up NOT needed/ Needed within 7-14 days. New Medications At Discharge: Dose as per EHR. Transport: Family & Friends DME: None/ Discharge planning needed total 41 minutes of detailed discussion. The patient and caregiver team agreed to the plan. Case discussed with Dr. Stroud. Consults/Reason for consult OBGYN Operations or Procedures [address] [address] Ph: [phone] DIAGNOSTIC IMAGING Diagnostic Imaging Report : [id number] Signed PATIENT: CHERELLE RUTLEDEG ACCT: [id number] UNIT: [id number] : 1985 LOC: OVERFLOW ROOM / BED: 1010-ER / A AGE / SEX: 40 / F ADM STATUS: ADM IN SERVICE 1338 ORDERING PHYSICIAN: ZULEMA PUENTE RESIDENT PROCEDURE(s): ABPLC - CT ABD PELVIS W CON-ORAL & IV REASON: Severe abdominal tenderness, flank tenderness and sepsis ORDER NUMBER(s): [id number], ACCESSION NUMBER(s): [id number] Exam: CT CT ABD PELVIS W CON-ORAL IV History: Severe abdominal tenderness, flank tenderness and sepsis Comparison Study: US PELVIC on DOS: 01/29/25, CT CT AB PEL WO CON-NO ORAL OR IV on DOS: 01/28/25 TECHNIQUE: Multidetector CT of the abdomen was performed from lung bases to pubic symphysis. Imaging was performed without IV contrast. Axial, coronal and sagittal multiplanar reformats were obtained from the axial data set by the technologist. Radiation Dose Information: CT Dose: CTDI volume is 10.12 mGy. Dose-length product is 586.45 mGy*cm FINDINGS: Evaluation of solid organs is limited due to lack of intravenous contrast use. Findings: Lung Bases: Worsening of the airspace disease posterior costophrenic angles bilaterally when compared to 01/28/2025. Normal heart size. No pleural or pericardial effusion. Liver: The liver is normal in size. No focal lesions. Gallbladder and Biliary Tree: Unremarkable Spleen: Unremarkable Pancreas: The pancreas is grossly normal in appearance. Adrenal Glands: Unremarkable Kidneys: Kidneys are grossly normal without calculi or hydronephrosis. Bladder: Grossly unremarkable for degree of distention. Bowel: The stomach is grossly normal in appearance. Small bowel and colon are normal in caliber and distribution. The appendix is not visualized; however, no secondary findings of acute appendicitis identified. Ascites: Absent Lymphadenopathy: No mesenteric, retroperitoneal or periportal lymphadenopathy. Abdominal Wall and Mesentery: Unremarkable. Vasculature: The visualized abdominal aorta is normal in size and caliber. Evaluation of abdominal and pelvic vessels is limited due to lack of intravenous contrast. Pelvic Organs: Unremarkable Musculoskeletal: No aggressive focal bony lesions, acute fractures or dislocation. Soft tissues: Unremarkable IMPRESSION: 1. No acute abdominal or pelvic finding. 2. No nephrolithiasis or hydronephrosis. 3. No free air or free fluid in the abdomen or pelvis. Radiation optimization: All CT scans at this facility use at least one of these dose optimization techniques: automated exposure control mA and/or kV adjustment per patient size (includes targeted exams where dose is matched to clinical indication) or iterative reconstruction. ATED BY: COURTNEY HANNA Jr., DO DICTATED DATE/TIME: 01/29/251723 SIGNED BY: COURTNEY HANNA Jr., SIGNED DATE/TIME: 01/29/251723 CC: vvvvvvvvvvvvvvvvvvvvvvvvvvvvvvvvvvvvvvvvvv [place] [address] Ph: [phone] DIAGNOSTIC IMAGING Diagnostic Imaging Report : [id number] Signed PATIENT: HCERELLE RUTLEDGE ACCT: [id number] UNIT: [id number] : 1985 LOC: OVERFLOW ROOM / BED: [facility]-ER / A AGE / SEX: 40 / F ADM STATUS: ADM IN SERVICE 1338 ORDERING PHYSICIAN: ZULEMA PUNETE RESIDENT PROCEDURE(s): ABPLC - CT ABD PELVIS W CON-ORAL & IV REASON: Severe abdominal tenderness, flank tenderness and sepsis ORDER NUMBER(s): [id number], ACCESSION NUMBER(s): [id number] Exam: CT CT ABD PELVIS W CON-ORAL IV History: Severe abdominal tenderness, flank tenderness and sepsis Comparison Study: US PELVIC on DOS: 01/29/25, CT CT AB PEL WO CON-NO ORAL OR IV on DOS: 01/28/25 TECHNIQUE: Multidetector CT of the abdomen was performed from lung bases to pubic symphysis. Imaging was performed without IV contrast. Axial, coronal and sagittal multiplanar reformats were obtained from the axial data set by the technologist. Radiation Dose Information: CT Dose: CTDI volume is 10.12 mGy. Dose-length product is 586.45 mGy*cm FINDINGS: Evaluation of solid organs is limited due to lack of intravenous contrast use. Findings: Lung Bases: Worsening of the airspace disease posterior costophrenic angles bilaterally when compared to 01/28/2025. Normal heart size. No pleural or pericardial effusion. Liver: The liver is normal in size. No focal lesions. Gallbladder and Biliary Tree: Unremarkable Spleen: Unremarkable Pancreas: The pancreas is grossly normal in appearance. Adrenal Glands: Unremarkable Kidneys: Kidneys are grossly normal without calculi or hydronephrosis. Bladder: Grossly unremarkable for degree of distention. Bowel: The stomach is grossly normal in appearance. Small bowel and colon are normal in caliber and distribution. The appendix is not visualized; however, no secondary findings of acute appendicitis identified. Ascites: Absent Lymphadenopathy: No mesenteric, retroperitoneal or periportal lymphadenopathy. Abdominal Wall and Mesentery: Unremarkable. Vasculature: The visualized abdominal aorta is normal in size and caliber. Evaluation of abdominal and pelvic vessels is limited due to lack of intravenous contrast. Pelvic Organs: Unremarkable Musculoskeletal: No aggressive focal bony lesions, acute fractures or dislocation. Soft tissues: Unremarkable IMPRESSION: 1. No acute abdominal or pelvic finding. 2. No nephrolithiasis or hydronephrosis. 3. No free air or free fluid in the abdomen or pelvis. Radiation optimization: All CT scans at this facility use at least one of these dose optimization techniques: automated exposure control mA and/or kV adjustment per patient size (includes targeted exams where dose is matched to clinical indication) or iterative reconstruction. ATED BY: COURTNEY HANNA Jr., DO DICTATED DATE/TIME: 01/29/251723 SIGNED BY: COURTNEY HANNA Jr., DO SIGNED DATE/TIME: 01/29/251723 CC: [place] [id number] Ph: [phone] DIAGNOSTIC IMAGING Diagnostic Imaging Report : [id number] Signed PATIENT: CHERELLE RUTLEDGE ACCT: [id number] UNIT: [id number] : 1985 LOC: OVERFLOW ROOM / BED: 1010-ER / A AGE / SEX: 40 / F ADM STATUS: ADM IN SERVICE 0551 ORDERING PHYSICIAN: KERLINE LEDESMA PROCEDURE(s): PELUS - PELVIC REASON: Possible tampon ORDER NUMBER(s): [id number], ACCESSION NUMBER(s): [id number] CLINICAL HISTORY: Possible tampon TECHNIQUE: Ultrasound examination of the female pelvis was performed transabdominal. Transvaginal ultrasound was performed to more optimally assess the endometrial cavity. COMPARISON: None FINDINGS: TRANSABDOMINAL IMAGING: The bladder is grossly unremarkable. Endovaginal imaging was thereafter performed for better depiction of the anatomy. ENDOVAGINAL IMAGING: The uterus measures 8.5 X 4.8 X 5.5 CM. The myometrial echotexture is homogenous. No focal myometrial abnormality is seen. The endometrial lining is normal in thickness, measuring 6 mm. The right ovary measures 3.4 X 4.7 X 2.0 cm. The left ovary measures 4.2 X 4.5 X 3.3 cm. Normal color doppler flow and vascular waveforms. There is no free fluid. No foreign body is evident. IMPRESSION: NO SIGNIFICANT SONOGRAPHIC ABNORMALITY OF THE PELVIS. ATED BY: CARSON ESTRADA MD DICTATED DATE/TIME: 01/29/25945 SIGNED BY: CARSON ESTRADA MD SIGNED DATE/TIME: 01/29/25945 CC: [place] [address] Ph: [phone] DIAGNOSTIC IMAGING Diagnostic Imaging Report : [id number] Signed PATIENT: CHERELLE RUTLEDGE ACCT: [id number] UNIT: [id number] : 1985 LOC: ER ROOM / BED: / AGE / SEX: 39 / F ADM STATUS: REG ER SERVICE 4665 ORDERING PHYSICIAN: DENTON JIMENEZ MD PROCEDURE(s): ABPL - CT AB PEL WO CON-NO ORAL OR IV REASON: pain ORDER NUMBER(s): [id number], ACCESSION NUMBER(s): [id number] EXAM: CT CT AB PEL WO CON-NO ORAL OR IV INDICATION: pain TECHNIQUE: Volumetric multidetector CT images of the abdomen and pelvis were obtained without contrast. All CT scans at this facility use dose modulation, iterative reconstruction, and/or weight based dosing when appropriate to reduce radiation dose to as low as reasonably achievable. COMPARISON: None FINDINGS: [LOWER CHEST]: Indeterminate 3.5 cm areas soft tissue thickening along the left posterior lower hemithorax. [LIVER]: Normal hepatic size without suspicious focal lesion. [GALLBLADDER AND BILIARY TREE]: No cholelithiasis. [SPLEEN]: Unremarkable. [PANCREAS]: Unremarkable. [ADRENAL GLANDS]: Unremarkable [KIDNEYS]: No hydronephrosis. No nephroureterolithiasis. [BLADDER]: Unremarkable for the degree distention. [REPRODUCTIVE ORGANS]: Unremarkable. [BOWEL/MESENTERY]: Stomach is normal. Mild stool burden. Normal appendix. [ASCITES]: Absent [LYMPHADENOPATHY]: No pathologically enlarged lymph nodes by CT size criteria [VASCULATURE]: No aneurysmal dilatation. [ABDOMINAL WALL]: Unremarkable. [MUSCULOSKELETAL]: No acute fracture or aggressive focal osseous lesion. IMPRESSION: 1. Mild stool burden. No hydronephrosis or nephroureterolithiasis. 2. Indeterminate 3.5 cm areas soft tissue thickening along the left posterior lower hemithorax. Imaging finding may be seen in the setting of metastatic disease to the intercostal space. No adjacent aggressive osseous features. Consider dedicated CT of the chest with contrast. ATED BY: CARSON ESTRADA MD DICTATED DATE/TIME: 01/28/251848 SIGNED BY: CARSON ESTRADA MD SIGNED DATE/TIME: 01/28/251848 CC: Condition at Discharge: Guarded Final Diagnosis/Problems List # Likely, toxic shock syndrome due to retained tampon/lost tampon thread # Likely sexually transmitted disease, Noted vaginal discharge and swelling in sexually active female # Sepsis likely due to above # Acute abdominal pain in workup, ruled out Acute pancreatitis, Ectopic , Complicated UTI, and Surgical Abdomen with viscus rupture. Simple and/or complicated UTI: Ruled out clinically # Acute Hypokalemia, Mild # Likely left thoracic lipoma, noted Indeterminate 3.5 cm areas soft tissue thickening along the left posterior lower hemithorax on CT # MRSA nares screen +ve # Yet to Rule out and retrained product of conception # Grade I obesity Discharge Disposition: AMA Discharge Instruct/Medications Diet: Regular Activity: No Restrictions, As Tolerated Follow Up/Referral: as above Medications: as above Discharge Statement: "Patient was advised to return to the ER or call 911 if any headaches, dizziness, shortness of breath, chest pain, abdominal pain, bleeding, fevers, or worsening of medical condition. Patient was counseled about treatment plan, medications, possible side effects, patientverbalized understanding. All questions were answered to the best of my ability. This discharge took greater then 30 minutes in planning, reviewing documentation, counseling the patient, and discussing with other team members." ASSESSMENT ASSESSMENT Assessment ANTWAN AYOUB RESIDENT Feb 01, 2025 06:15
== END 2025-01-29 18:05 | disposition left against medical advice (07) | DRG 720 ==
LOC: ER 15:56 → OVERFLOW 01-29 03:48
PROVIDERS: ATTEND Emergency Medicine
DX: A41.9 Sepsis, unspecified organism (principal); A54.9 Gonococcal infection, unspecified; A56.8 Sexually transmitted chlamydial infection of other sites; E87.6 Hypokalemia; Z53.29 Procedure and treatment not carried out because of patient's decision for other reasons; Z88.1 Allergy status to other antibiotic agents; E66.811 Obesity, class 1; Z68.31 Body mass index [BMI] 31.0-31.9, adult; D17.4 Benign lipomatous neoplasm of intrathoracic organs
CPT/HCPCS: 36415; 74176; 74177; 76830; 76856; 80053; 81001; 83605; 83690; 84702; 85025; 85610; 85730; 87040; 87081; 87086; G0378; J2405; J3490